=== PATIENT | female | born 1950 | race Caucasian/White ===

== ENCOUNTER → 2023-07-13 10:56 | Outpatient (REF) | payer MEDICARE, OTHER, SELFPAY | LOC: WDC 10:56 | PROVIDERS: ATTENDING PHYSICIAN Family Medicine | DX: Z12.31 Encounter for screening mammogram for malignant neoplasm of breast (principal); Z78.0 Asymptomatic menopausal state | CPT/HCPCS: 77063; 77067; 77080 ==

== ENCOUNTER → 2023-07-14 11:51 | Outpatient (REF) | payer MEDICARE, OTHER, SELFPAY | LOC: SDSPAT 11:51 | PROVIDERS: ATTENDING PHYSICIAN Obstetrics & Gynecology; FAMILY PHYSICIAN Family Medicine; OTHER PHYSICIAN Obstetrics & Gynecology | DX: N81.2 Incomplete uterovaginal prolapse (principal) | CPT/HCPCS: 36415; 86850; 86900; 86901; 93005 ==

== ENCOUNTER 2023-07-26 06:38 | Day surgery (SDC) | payer MEDICARE, OTHER, SELFPAY ==
[2023-07-14 12:18] VITALS: BMI 29.0
[2023-07-26] VITALS (13 sets, daily range): BP systolic 99–115; BP diastolic 56–72; BMI 29.0
[2023-07-26] MEDS: NORMOSOL-R 1000 IV (10:10)
[2023-07-26] MEDS: Pyridium 200 MG PO (10:11)
[2023-07-26] MEDS: DILAUDID 0.25 MG IV (16:38)
== END 2023-07-26 19:03 | disposition home or self-care (01) ==
LOC: SDS 06:38
PROVIDERS: ATTENDING PHYSICIAN Obstetrics & Gynecology; FAMILY PHYSICIAN Family Medicine
DX: N81.2 Incomplete uterovaginal prolapse (principal); N95.2 Postmenopausal atrophic vaginitis
CPT/HCPCS: 57425; 58542; 57250; 88305; 86900; 86901; C1763; J1580

== ENCOUNTER → 2024-10-22 07:29 | Outpatient (REF) | payer MEDICARE, OTHER, SELFPAY ==
[2024-10-22 08:25] LABS: Hematocrit 40.1 % (37.0-47.0); Hemoglobin 13.1 g/dL (12.0-16.0); Mean Corp Hgb Conc. 32.7 g/dL (33.0-37.0); Mean Corpuscular Volume 85.9 fL (81.0-99.0); Nucleated Red Blood Cells % 0 %; Platelet Count 217 10^3/uL (130-400); Red Cell Dist. Width 13.3 % (11.5-14.5)
[2024-10-22 08:51] LABS: ALT (SGPT) 17 U/L (0-35); AST (SGOT) 16 U/L (14-36); Albumin 4.3 g/dl (3.5-5.0); Alkaline Phosphatase 87 U/L (38-126); Blood Urea Nitrogen 18 mg/dl (7-17); Calcium 9.2 mg/dl (8.4-10.2); Carbon Dioxide 26 mmol/L (22-30); Chloride 107 mmol/L (98-107); Glucose 101 mg/dl (70-99); HDL Cholesterol 49 mg/dl; LDL Cholesterol, Calculated 180 mg/dl; Magnesium 2.4 mg/dl (1.6-2.3); Potassium 4.5 mmol/L (3.5-5.1); Sodium 139 mmol/L (135-145); Total Protein 6.7 g/dl (6.3-8.2); Very Low Density Lipoprotein 15 mg/dl (0-30); eGFR > 60.00
[2024-10-22 09:17] LABS: Vitamin D, 25-OH*** 50.1 ng/mL (30-80)
[2024-10-22 10:06] LABS: Folate 3.9 ng/ml (2.76-20); Vitamin B12 995 pg/ml (239-931)
== END ==
LOC: REG 07:29
PROVIDERS: ATTENDING PHYSICIAN Family Medicine
DX: E03.9 Hypothyroidism, unspecified (principal); Z79.899 Other long term (current) drug therapy; E78.00 Pure hypercholesterolemia, unspecified; I35.8 Other nonrheumatic aortic valve disorders; I34.0 Nonrheumatic mitral (valve) insufficiency; I07.1 Rheumatic tricuspid insufficiency
CPT/HCPCS: 36415; 80053; 80061; 82306; 82607; 82746; 83735; 84443; 85025

== ENCOUNTER → 2024-11-13 14:25 | Outpatient (REF) | payer MEDICARE, OTHER, SELFPAY | LOC: WDC 14:25 | PROVIDERS: ATTENDING PHYSICIAN Family Medicine | DX: Z12.31 Encounter for screening mammogram for malignant neoplasm of breast (principal) | CPT/HCPCS: 77063; 77067 ==